=== PATIENT | female | born 1985 | race African-American/Black ===

== ENCOUNTER 2017-02-20 12:17 | Emergency (ER) | payer MEDICAID ==
[~2017-02-20] VITALS: Ht 157.5 cm; Wt 66.0 kg
[2017-02-20] MEDS ORDERED: UNKNOWN BP MEDS (12:49)
[2017-02-20 14:57] LABS: CARBON DIOXIDE 26 mEq/L (21-32); CHLORIDE 108 mEq/L (98-107)
[2017-02-20 14:59] LABS: HCG SCREEN NEGATIVE
[2017-02-20] MEDS ORDERED: CLONIDINE 0.1MG TABLET PO ONE (15:00)
[2017-02-20] MEDS ORDERED: IBUPROFEN 600MG TABLET PO ONE (15:00)
[2017-02-20 15:17] VITALS: BP 183/119
== END 2017-02-20 16:03 | disposition home or self-care (01) ==
LOC: ER 15:03
DX: I16.0 Hypertensive urgency (principal); Z87.891 Personal history of nicotine dependence
CPT/HCPCS: 36415; 80048; 84703; 93005; 99285

== ENCOUNTER 2022-08-17 14:25 | Emergency (ER) | payer MEDICAID ==
[~2022-08-17] VITALS: Ht 162.6 cm; Wt 77.0 kg
[~2022-08-17 14:25] MED LIST: UNKNOWN BP MEDS
[2022-08-17 14:31] VITALS: BP 169/98
[2022-08-17] MEDS ORDERED: KETOROLAC 60MG/2ML VIAL IM ONE (17:45)
[2022-08-17] MEDS ORDERED: LIDOCAINE 5% PATCH TOP SCH (17:45)
== END 2022-08-17 17:55 | disposition home or self-care (01) ==
LOC: ER 14:25
DX: S13.4XXA Sprain of ligaments of cervical spine, initial encounter (principal); I10 Essential (primary) hypertension; V49.9XXA Car occupant (driver) (passenger) injured in unspecified traffic accident, initial encounter; Y93.89 Activity, other specified; Y92.89 Other specified places as the place of occurrence of the external cause; Y99.8 Other external cause status
CPT/HCPCS: 99281